=== PATIENT | female | born 1990 | race Caucasian/White ===

== ENCOUNTER 2019-11-28 12:22 | Emergency (ER) | payer BC, OTHER ==
[~2019-11-28] VITALS: Ht 154.9 cm; Wt 44.2 kg
[2019-11-28 12:25] VITALS: BP 116/68
--- NOTE | 2019-11-28 12:25 | NUR ---
Patient BIBA ALS, transferred to bed 1. RN evaluating patient at bedside.
--- NOTE | 2019-11-28 12:25 | NUR ---
PT C/O CHEST TIGHT RAIATING TO BACK ONE HOUR PRIOR TO [facility]. PT ALSO C/O SOB , O2 SATS 100% ON RA. PT GAVE TO BABY ON OCT 18.PT TOOK FOUR PILLS OF BABY ASPIRIN AT HOME. PT HAS HX: ANIETY. VITAL STABLE, ER MD MADE AWARE OF PT STATUS.
--- NOTE | 2019-11-28 12:30 | NUR ---
OFFERED PT O2 NC 2L/MIN FOR PT'S SOB.
[2019-11-28] MEDS ORDERED: NACL 0.9% 1,000 ML IV ONE (12:35)
[2019-11-28 12:54] LABS: BASOPHILS % (AUTO) 0.6 % (0.0-2.0); EOSINOPHILS # (AUTO) 0.1 K/uL (0-0.4); EOSINOPHILS % (AUTO) 0.8 % (0.0-4.0); HEMATOCRIT 42.6 % (36-48); HEMOGLOBIN 14.3 g/dL (12.0-16.0); LYMPHOCYTES # (AUTO) 2.5 K/uL (2.5-16.5); LYMPHOCYTES % (AUTO) 33.7 % (20.5-51.1); MEAN CORPUSCULAR HEMOGLOBIN 29 pg (27-31); MEAN CORPUSCULAR HGB CONC 34 g/dL (33-37); MEAN CORPUSCULAR VOLUME 85.7 fL (80-94); MONOCYTES # (AUTO) 0.3 K/uL (0.8-1.0); MONOCYTES % (AUTO) 4.4 % (1.7-9.3); NEUTROPHILS # (AUTO) 4.5 K/uL (1.8-7.7); NEUTROPHILS % (AUTO) 60.5 % (42.2-75.2); PLATELET COUNT (AUTO) 209 K/uL (140-450); RED BLOOD CELL COUNT(AUTO) 4.97 MIL/uL (4.20-5.40); RED CELL DISTRIBUTION WIDTH 14.1 % (11.6-13.7); WHITE BLOOD COUNT (AUTO) 7.5 K/uL (4.8-10.8)
[2019-11-28 13:32] LABS: ALBUMIN 3.6 g/dL (3.4-5.0); ANION GAP 18.7 (8-16); CARBON DIOXIDE 21.8 mmol/L (21-32); CREATININE 0.9 mg/dL (0.6-1.3); POTASSIUM 3.5 mmol/L (3.5-5.1); TOTAL BILIRUBIN 0.3 mg/dL (0.0-1.0)
--- NOTE | 2019-11-28 13:45 | NUR ---
PT STATED SHE FEELS BETTER AND REMOVED O2.
[2019-11-28 15:28] VITALS: BP 118/72
== END 2019-11-28 15:29 | disposition home or self-care (01) ==
LOC: MED 12:22
DX: R07.9 Chest pain, unspecified (principal); R06.02 Shortness of breath; R42 Dizziness and giddiness
CPT/HCPCS: 36415; 71045; 80053; 84484; 85025; 93005; 96360; 99285; C1758; J7030; Q0092